=== PATIENT | male | born 1945 | race Caucasian/White ===

== ENCOUNTER 2023-08-28 00:09 | Outpatient (RCR) | payer MEDICARE, SELFPAY ==
[2023-08-28] MEDS: Normal Saline Flush 10 ML SYR IVP (12:10)
== END 2023-08-28 23:59 | disposition home or self-care (01) ==
LOC: INF 00:09
PROVIDERS: PCP Internal Medicine; Visit Provider Internal Medicine Hematology & Oncology
DX: Z45.2 Encounter for adjustment and management of vascular access device (principal)
CPT/HCPCS: 96523

== ENCOUNTER 2024-09-06 10:28 | Emergency (ER) | payer MEDICARE, SELFPAY ==
[2024-09-06] VITALS (25 sets, daily range): BP systolic 99–150; BP diastolic 66–85; PULSE 57–71; RESP 17; TEMP 36.7; O2SAT 92–98
[2024-09-06] MEDS: Ondansetron 4 MG/2 ML VIAL IVP (11:00)
--- NOTE | 2024-09-06 11:00 | DI.CT_ITS ---
Exam(s) CT ABDOMEN PELVIS W EXAM: CT ABDOMEN PELVIS W CLINICAL HISTORY: c/f biliary obstruction, hx whipple, hernia. TECHNIQUE: Imaging Protocol: Axial computed tomography images with coronal and sagittal reformatted images were created and reviewed CONTRAST MATERIAL: Intravenous: Omnipaque 350 Contrast volume:T5 ml Oral: no COMPARISON: MR MRI LIVER WWO CONTRAST from 07/19/2024 FINDINGS: ABDOMEN and PELVIS: Lung Bases: Markedly elevated right diaphragm. Small to moderate-sized right pleural effusion and ad jacent compressive atelectasis. Similar to prior. The left lung appears clear. Liver: Mild hepatic steatosis. Atrophy of the left lobe. No suspicious mass. Small amount of fluid around liver. Small loculated collection is noted anteriorly. Similar to prior exam. Gallbladder and biliary tract: Status post cholecystectomy and Whipple procedure.. Stable left intrah epatic biliary dilation. Pancreas: Atrophic. Spleen: Enlarged, 18.5 cm. Appears homogeneous. Small amount of fluid is noted around spleen. Similar to prior exam. Kidneys: Normal size, contour and axis. No radiodense stones. No obstructive uropathy. No suspicious masses seen. Adrenal glands: No masses seen. Vasculature: Abdominal aorta non-dilated. Soft tissues: Midline surgical scar above the level of the umbilicus. There is a small hernia contai peter a loop of small bowel without definite obstruction. The similar to the prior exam. Bladder: No gross wall thickening. No calculi.No focal mass. Bowel: No obstruction. Multiple bowel anastomoses. Large quantity of stool in the rectum, sigmoi d and descending colon. Peritoneal cavity: Small amount of ascites. No focal abscess collection.. No free air. Bones: Unremarkable for age. Reproductive organs: enlarged prostate. Lymph nodes: No pathologically enlarged lymph nodes. IMPRESSION:: Status post Whipple procedure. Stable appearance dilatation of the left hepatic ducts. Small hernia above the level of the umbilicus containing a nonobstructed loop of small bowel, stable from prior. Stable right pleural effusion and adjacent atelectasis. Stable fluid around liver and spleen as well as small amount of ascites. RADIATION DOSE DELIVERED: 596.06mGy.cm Total DLP DATA REPOSITORY: All CT scans at this facility are submitted to the National Radiology Data Registry (NRDR) Dose Index Registry (DIR) with the [employer] ([employer]). RADIATION OPTIMIZATION: All CT scans at this facility use at least one of these dose optimization te chniques: automated exposure control; mA and/or kV adjustment per patient size (includes targeted exa ms where dose is matched to clinical indication); or iterative reconstruction.
[2024-09-06 11:08] LABS: Abs Immature Grans 0.04 10^3/uL (0.0-0.06); Absolute Basophil Count 0.01 10^3/uL (0.0-0.2); Absolute Eosinophil Count 0.04 10^3/uL (0.0-0.7); Absolute Lymphocyte Count 0.61 10^3/uL (1.2-3.4); Absolute Monocyte Count 0.36 10^3/uL (0.1-0.8); Absolute Neutrophil Count 2.46 10^3/uL (1.2-6.7); Basophils % 0.3 %; Eosinophils % 1.1 %; HCT 29.1 % (40.0-50.0); HGB 9.6 g/dL (13.5-17.5); Immature Grans % 1.1 %; Lymphocytes % 17.3 %; MCV 88 fL (80-95); Monocytes % 10.2 %; Nucleated RBC 0.9 % (0.0-0.3); Platelet Count 154 10^3/uL (130-400); RBC 3.31 10^6/uL (4.36-5.78); RDW 25.8 % (11.8-14.1); RDW-SD 81.6 fL; WBC 3.52 10^3/uL (4.4-10.8)
--- NOTE | 2024-09-06 11:14 | ED.GENADUL_ITS ---
Discharge Plan Disposition Patient Disposition: Home Condition: Stable Discharge Details Clinical Impression: Elevated bilirubin, Duodenal adenocarcinoma, Hypertension Primary Care Provider: Sophie Rasheed ED Provider: Anisa Correa Home Meds and New Rx's Prescriptions: No Action polyethylene glycol 3350 [Miralax] 17 gram powder in packet 17 g PO DAILY tamsulosin 0.4 mg capsule 0.8 mg PO DAILY sertraline 100 mg tablet 200 mg PO DAILY lorazepam 0.5 mg tablet 0.5 mg PO QHS PRN prochlorperazine maleate [Compazine] 10 mg tablet 10 mg PO Q6H PRN clonazepam [Klonopin] 0.5 mg tablet 0.5 mg PO DAILY PRN ondansetron 4 mg tablet,disintegrating 4 mg PO Q8H PRN docusate sodium [Colace] 100 mg capsule 200 mg PO DAILY PRN sennosides [senna] 8.6 mg tablet 17.2 mg PO DAILY PRN acetaminophen [Tylenol 8 Hour] 650 mg tablet extended release 650 mg PO Q6H Rx Instructions: Do not exceed 6 tabs in 24 hours. Creon 24,000-76,000 -120,000 unit capsule,delayed release(DR/EC) 2 cap PO TID Rx Instructions: administer with meals and/or snacks lansoprazole 30 mg capsule,delayed release(DR/EC) 30 mg PO DAILY Patient Comments: TAKE ONE CAPSULE BY MOUTH EVERY DAY Discharge Instructions Instructions: Biliary Stent Placement Additional Instructions: You were seen in the emergency department today at the recommendation of your oncologist for evaluation of your bile ducts in your liver. In our department a full physical examination performed, had laboratory studies that showed an elevated liver enzyme as well as a bilirubin of 2.6. You had a CT scan that was stable compared to your most recent images, and I did reach out to the cardiac care nurse on-call at [facility] today, who did not recommend transport for ERCP today. I reached out to Dr. Posada with the cancer center, and he is going to call your prior cardiac care nurse and reach out to you in the next few days with a plan for repeat laboratory studies and/or transfer/referral to [facility] for any procedures that they recommend. You are desiring of discharge home which I think is very reasonable, please continue to maintain good hydration and nutrition, take all of your medications as prescribed, and you can always return to the emergency department if you have any concerns. Thank you for allowing us to be part of your care. HPI General Mode of arrival: ambulatory . Date/Time Provider Initiated Documentation: 09/06/24 10:36 . Limitations to Documentation: no limitations . Information obtained by: patient, family, RN/MD and old records reviewed . HPI Narrative: HPI: This is a 79-year-old male patient with a past medical history significant for duodenal adenocarcinoma status post Whipple procedure, sent by the cancer center for evaluation of elevated bilirubin concerning for biliary tract obstruction. The patient is status post cholecystectomy, states that he has had some nausea and mild upper abdominal pain. He had laboratory studies drawn today that showed a transaminitis and obstructive pattern with elevated bilirubin and alkaline phosphatase. The patient reports no fevers or chills, has been otherwise in his normal state of health and is quite comfortable on initial evaluation today. He does have a history of an incisional hernia, states that he has not been able to palpate any firm bulges and has not noted any skin changes. He has been passing stool and urine typically for him. Exam: Gen: Awake and alert, in no apparent distress HEENT: Non-icteric sclera Neck: Supple Lungs: No apparent respiratory distress, normal respiratory effort. Lung sounds clear and equal CV: Appears well perfused, heart with regular rate and rhythm, no murmurs Abdomen: Non-distended, soft, nontender to palpation without rigidity, rebound, or guarding. I do not palpate any hernia bulges, surgical incisions well- healed. MSK: Moves 4 extremities without apparent limitation in ROM Skin: Visualized skin without rashes, cyanosis. Neuro: Normal Gait, no obvious focal deficits or facial asymmetry. Speaks in full, clear sentences. Psych: Appropriate for situation. MDM: This is a 79-year-old male patient presenting for evaluation of abdominal pain and nausea with evidence of biliary tract pathology on outpatient labs. Differential includes but is not limited to biliary tract obstruction, including by mass, inflammation, bile duct stone, etc. Considered extension and metastatic disease, ascites, hepatitis, pancreatitis. Considered metabolic and electrolyte derangements and dehydration. Considered obstruction, hernia strangulation, though the patient has a reassuring abdominal examination. We will obtain laboratory studies to include CBC, CMP, magnesium, lipase, and troponin. I will obtain a CT abdomen pelvis with contrast, and I did perform a bedside ultrasound that does show a small fluid collection anterior to the liver, no other obvious abnormalities. ED Course: I reviewed the patient's laboratory studies, he is a white blood cell count of 3.5 and an anemia to 9.6, has been demonstrated on prior laboratory studies at outside hospitals. Chemistry panel without electrolyte derangements or evidence of kidney dysfunction, bilirubin elevated to 2.6, transaminitis in the 240s, alk phos 678. Troponin was negative and without interval change on 1 hour recheck. Lipase is low. I reviewed the patient's CT scan, and discussed the results with the radiologist. Compared to imaging obtained at [facility], the patient has stable intrahepatic biliary dilation, no evidence of mass or obstruction, has small fluid collections anterior to his liver and spleen that are unchanged, and o therwise no acute changes or findings are appreciated to explain the patient's laboratory abnormalities. I discussed this patient's case with Dr. Npaier of GI at [facility], who reviewed the labs and imaging and feel that he would not benefit from urgent ERCP given the relatively low elevation in bilirubin in the technical difficulties associated with ERCP after Whipple procedure. Their recommendation was for repeat laboratory studies tomorrow, and if bilirubin elevated above 4, could consider down and back transfer for ERCP or admission at [facility]. I reached out to Dr. Posada at the cancer center, as the patient does not desire admission overnight at the hospital and I do not see that he actually has an admission diagnosis that would require him to stay as an inpatient. Dr. Posada will reach out to the patient's previous cardiac care nurse, agrees that the patient will be safe for discharge to home and will coordinate with the patient and family any repeat outpatient laboratory studies that they need. At this time, the patient has had a full medical evaluation and is safe for discharge to home. They are hemodynamically stable, ambulatory, and tolerating PO. They are understanding of the follow-up plan and return precautions. They left our facility without incident. Anisa Correa MD Related Data Home Medications ?Medication ?Instructions ?Recorded ?Confirmed acetaminophen 650 mg 650 mg PO Q6H 12/19/23 09/06/24 tablet,extended release (Tylenol 8 Hour) clonazepam 0.5 mg tablet (Klonopin) 0.5 mg PO DAILY PRN 12/19/23 09/06/24 docusate sodium 100 mg capsule 200 mg PO DAILY PRN 12/19/23 09/06/24 (Colace) lorazepam 0.5 mg tablet 0.5 mg PO QHS PRN 12/19/23 09/06/24 ondansetron 4 mg disintegrating 4 mg PO Q8H PRN 12/19/23 09/06/24 tablet prochlorperazine maleate 10 mg 10 mg PO Q6H PRN 12/19/23 09/06/24 tablet (Compazine) sennosides 8.6 mg tablet (senna) 17.2 mg PO DAILY PRN 12/19/23 09/06/24 sertraline 100 mg tablet 200 mg PO DAILY 12/19/23 09/06/24 tamsulosin 0.4 mg capsule 0.8 mg PO DAILY 12/19/23 09/06/24 polyethylene glycol 3350 17 gram 17 g PO DAILY 03/09/24 09/06/24 oral powder packet (Miralax) lansoprazole 30 mg capsule,delayed 30 mg PO DAILY 09/06/24 09/06/24 release [id number] 2 cap PO TID 09/06/24 09/06/24 24,000-76,000-120,000 unit capsule,delayed rel (Creon) Allergies Allergy/AdvReac Type Severity Reaction Status Date / Time fluconazole Allergy Intermediate rash Unverified 09/06/24 11:08 General Stated Complaint: Abd Prob PATRICIO: 3 Course Vital Signs Vital signs: Vital Signs Pulse 71 09/06/24 10:32 Respiratory Rate 17 09/06/24 10:32 Blood Pressure 123/76 09/06/24 10:32 Pulse Oximetry 98 09/06/24 10:32 Pulse 71 09/06/24 10:34 Respiratory Rate 17 09/06/24 10:34 Blood Pressure 123/76 09/06/24 10:34 Blood Pressure Position Sitting 09/06/24 10:34 Pulse Oximetry 98 09/06/24 10:34 Oxygen Delivery Method Room Air 09/06/24 10:34 Oxygen Flow Rate 0 09/06/24 10:34 Pain Level 0 09/06/24 10:34 Medical Decision Making Quality:SDOH Health Related Social Needs: No Data to Display PFSH All Active Problems (Updated 09/06/24 @ 14:17 by Anisa Correa MD) Elevated bilirubin (Acute) Urinary incontinence (Acute) Irritable bowel syndrome with constipation (Acute) Dyslipidemia (Acute) Anxiety (Chronic) Obesity (Chronic) Hypertension (Chronic) 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 Medical History Protein-calorie malnutrition, moderate Transaminitis Functional dyspepsia Surgical History H/O Whipple procedure 06/16/2023 History of appendectomy 2014 emergency performed laparoscopically History of cholecystectomy 2017 complicated by intra-abdominal abscess/sepsis requiring IR drains at [facility] Social History Smoking risk assessment performed?: No POCUS Exam (ED) Limited Gallbladder Exam DATE OF EXAM: 09/06/24 TIME OF EXAM: 11:14 PROVIDER THAT PERFORMED THE STUDY: Anisa Correa IS THIS A REPEAT EXAM DURING THIS ENCOUNTER: No REASON FOR VISIT: Abdominal pain, Elevated LFT and Nausea/vomiting VISUALIZED STRUCTURES: Liver PERTINENT FINDINGS/IMPRESSION: Other, s/p cholecystectomy, small ascites Exam complete
[2024-09-06 11:37] LABS: ALT 240 U/L (16-63); AST 247 U/L (15-37); Albumin 3.1 g/dL (3.4-5.0); Alkaline Phosphatase 678 U/L (46-116); Anion Gap 6.6 mmol/L (3-11); BUN 4 mg/dL (7-18); Bilirubin, Total 2.6 mg/dL (0.2-1.0); CO2 28.4 mmol/L (21.0-32.0); CREATININE 0.9 mg/dL (0.70-1.30); Calcium 8.8 mg/dL (8.5-10.1); Chloride 105 mmol/L (98-107); Estimated GFR 87.96 (mL/min/1.73m2); Glucose 93 mg/dL (74-106); Lipase 15 U/L (<78); Magnesium 1.9 mg/dL; Potassium 3.9 mmol/L (3.5-5.1); Sodium 140 mmol/L (136-145); Total Protein 6.5 g/dL (6.4-8.2); Troponin I 7 ng/L (<or=76)
[2024-09-06 11:40] LABS: Anisocytosis 2+; Basophilic Stippling Present; Poikilocytes 2+
[2024-09-06] MEDS: Omnipaque 350 MG/ML 100 ML BTL IJ (12:03)
[2024-09-06] MEDS: Normal Saline - Diluent 50 ML VIAL IJ (12:03)
[2024-09-06 12:28] LABS: Troponin I 5 ng/L (<or=76)
[2024-09-06] MEDS: Normal Saline Flush 10 ML SYR IVP (14:30)
[2024-09-06] MEDS: Heparin 500 UNITS/5 ML SYRINGE (14:30)
== END 2024-09-06 14:40 | disposition home or self-care (01) ==
PROVIDERS: Emergency Provider Emergency Medicine; PCP Internal Medicine
DX: R10.9 Unspecified abdominal pain (principal); R11.0 Nausea; I10 Essential (primary) hypertension; E80.7 Disorder of bilirubin metabolism, unspecified; C17.0 Malignant neoplasm of duodenum; C78.7 Secondary malignant neoplasm of liver and intrahepatic bile duct; C77.9 Secondary and unspecified malignant neoplasm of lymph node, unspecified
CPT/HCPCS: 36415; 76705; 80053; 83690; 99285; 74177; 83735; 84484; 85025; J1642; J2003; J2405; J3490